=== PATIENT | male | born 1950 | race Hispanic/Latino ===

== ENCOUNTER 2017-06-01 11:06 | Inpatient (IN) | payer OTHER ==
[2017-06-01] VITALS (11 sets, daily range): BP systolic 103–143; BP diastolic 53–82
[~2017-06-01] VITALS: Ht 165.1 cm; Wt 79.9 kg
[~2017-06-01 11:06] MED LIST: FENO145T PO; IBUP-2071 PO; INSLAN SQ; LISI10TA7 PO; MECLIZINE PO; METF10004 PO
[2017-06-01] MEDS ORDERED: NITROGLYCERIN 0.4 MG SL TAB SL ONE (11:08)
[2017-06-01] MEDS ORDERED: ASPIRIN 81MG TAB.CHEW ONE (11:08)
[2017-06-01] MEDS ORDERED: NITROGLYCERIN 50 MG/D5% WATER 1 BOT ONE (11:18)
[2017-06-01] MEDS ORDERED: FENTANYL CITRATE PF 50 MCG/1 ML 2ML VIAL ONE (11:31)
[2017-06-01 11:40] LABS: BASOPHILS % (AUTO) 0.5 % (0.0-5.0); EOSINOPHILS % (AUTO) 0.9 % (0.0-8.0); HEMATOCRIT 43.8 % (42-54); LYMPHOCYTES % (AUTO) 37.3 % (21.0-51.0); MEAN CORPUSCULAR HEMOGLOBIN 29.7 pg (27.0-33.0); MEAN CORPUSCULAR HGB CONC 34.6 g/dL (32.0-36.0); MEAN CORPUSCULAR VOLUME 85.9 fL (79-99); MONOCYTES % (AUTO) 6.7 % (3.0-13.0); NEUTROPHILS % (AUTO) 54.6 % (40.0-77.0); PLATELET COUNT (AUTO) 191 K/uL (130-400); RED CELL DISTRIBUTION WIDTH 13.2 % (11.0-15.5); WHITE BLOOD COUNT (AUTO) 11.1 K/uL (4.8-10.8)
[2017-06-01] MEDS ORDERED: ATROPINE SULFATE 0.1 MG/ML 10 ML SYG IVP ONE (11:46)
[2017-06-01] MEDS ORDERED: ISOVUE-370 50ML VIAL IV ONE (11:47)
[2017-06-01] MEDS ORDERED: NITROGLYCERIN 5 MG/ML 10 ML VIAL IV ONE (11:47)
[2017-06-01] MEDS ORDERED: LIDOCAINE HCL-MPF 2% 5ML VIAL ONE (11:47)
[2017-06-01] MEDS ORDERED: IOPAMIDOL-370 100 ML VIAL IV ONE (11:47)
[2017-06-01] MEDS ORDERED: BIVALIRUDIN 250 MG/VIAL IV ONE (11:47)
[2017-06-01 11:52] LABS: INR 0.95 (0.85-1.15); PARTIAL THROMBOPLASTIN TIME 26.6 SEC (26.3-35.5)
[2017-06-01] MEDS ORDERED: MORPHINE SULFATE 4 MG/1ML SYG ONE (12:02)
[2017-06-01] MEDS ORDERED: ONDANSETRON HCL 4 MG/2 ML VIAL ONE (12:06)
[2017-06-01 12:10] LABS: ALBUMIN 3.5 g/dL (3.5-5.0); BILIRUBIN,TOTAL 0.5 mg/dL (0.2-1.0); CREATINE KINASE MB 1.7 ng/mL (0.5-3.6); CREATININE 0.9 mg/dL (0.5-1.5); TOTAL PROTEIN, SERUM 8.4 g/dL (6.0-8.3)
[2017-06-01] MEDS ORDERED: GLUCAGON 1MG KIT 1 MG ML IM PRN (12:15)
[2017-06-01] MEDS: DILTIAZEM HCL 60 MG TABLET PO SCH ×2 (12:15→23:32)
[2017-06-01] MEDS ORDERED: DEXTROSE 50%-WATER 50 ML DISP.SYRIN IV PRN (12:15)
[2017-06-01] MEDS: POTASSIUM CHLORIDE 20 MEQ ERTAB PO SCH ×2 (12:15→20:47)
[2017-06-01] MEDS ORDERED: HYDRALAZINE HCL 20 MG/ML VIAL ONE (12:47)
[2017-06-01] MEDS ORDERED: ACETAMINOPHEN 325 MG TAB ONE (14:17)
[2017-06-01 14:23] LABS: HEMATOCRIT 42.8 % (42-54); MEAN CORPUSCULAR HEMOGLOBIN 29.9 pg (27.0-33.0); MEAN CORPUSCULAR HGB CONC 34.7 g/dL (32.0-36.0); MEAN CORPUSCULAR VOLUME 86.1 fL (79-99); PLATELET COUNT (AUTO) 198 K/uL (130-400); RED BLOOD CELL COUNT(AUTO) 4.97 MIL/uL (4.50-6.20); RED CELL DISTRIBUTION WIDTH 13.7 % (11.0-15.5); WHITE BLOOD COUNT (AUTO) 17.8 K/uL (4.8-10.8)
[2017-06-01 14:57] LABS: LYMPHOCYTES % (MANUAL) 11 % (22-44); MAN.DIFF COMMENT-IMPRESSION MANUAL DIFFERENTIAL; MONOCYTES % (MANUAL) 2 % (2-9); REACTIVE LYMPHOCYTES 4 % (0-0); SEGMENTED NEUTROPHILS % 83 % (40-70)
[2017-06-01 14:58] LABS: CREATINE KINASE MB 3.6 ng/mL (0.5-3.6); CREATININE 0.8 mg/dL (0.5-1.5); PLATELET MORPHOLOGY COMMENT ADEQUATE; POTASSIUM 3.5 mmol/L (3.5-5.1); TROPONIN I 0.26 ng/mL (0.00-0.06)
[2017-06-01 20:27] LABS: HEMATOCRIT 44.3 % (42-54); MEAN CORPUSCULAR HEMOGLOBIN 29.9 pg (27.0-33.0); MEAN CORPUSCULAR HGB CONC 34.6 g/dL (32.0-36.0); MEAN CORPUSCULAR VOLUME 86.3 fL (79-99); PLATELET COUNT (AUTO) 194 K/uL (130-400); RED BLOOD CELL COUNT(AUTO) 5.13 MIL/uL (4.50-6.20); RED CELL DISTRIBUTION WIDTH 13.3 % (11.0-15.5); WHITE BLOOD COUNT (AUTO) 13.6 K/uL (4.8-10.8)
[2017-06-01] MEDS ORDERED: ACETAMINOPHEN 325 MG TAB PO PRN (21:00)
[2017-06-01 21:02] LABS: BAND NEUTROPHILS % (MANUAL) 1 % (0-2); LYMPHOCYTES % (MANUAL) 11 % (22-44); MONOCYTES % (MANUAL) 3 % (2-9); REACTIVE LYMPHOCYTES 1 % (0-0); SEGMENTED NEUTROPHILS % 84 % (40-70)
[2017-06-01 21:03] LABS: CREATININE 0.9 mg/dL (0.5-1.5); MAN.DIFF COMMENT-IMPRESSION MANUAL DIFFERENTIAL; POTASSIUM 3.9 mmol/L (3.5-5.1)
[2017-06-01 21:06] LABS: TROPONIN I 3.55 ng/mL (0.00-0.06)
[2017-06-01] MEDS ORDERED: KETOROLAC TROMETHAMINE 15MG/ML IV SCH (21:30)
[2017-06-02 01:33] LABS: B-TYPE NATRIURETIC PEPTIDE 51 pg/mL (0-100)
[2017-06-02 04:01] VITALS: BP 136/81
[2017-06-02 04:32] LABS: HEMATOCRIT 43.1 % (42-54); MEAN CORPUSCULAR HEMOGLOBIN 30.1 pg (27.0-33.0); MEAN CORPUSCULAR HGB CONC 35.1 g/dL (32.0-36.0); MEAN CORPUSCULAR VOLUME 85.8 fL (79-99); PLATELET COUNT (AUTO) 195 K/uL (130-400); RED BLOOD CELL COUNT(AUTO) 5.02 MIL/uL (4.50-6.20); RED CELL DISTRIBUTION WIDTH 13.4 % (11.0-15.5); WHITE BLOOD COUNT (AUTO) 12.5 K/uL (4.8-10.8)
[2017-06-02 05:16] LABS: CREATINE KINASE MB 81.9 ng/mL (0.5-3.6); CREATININE 0.8 mg/dL (0.5-1.5); POTASSIUM 3.6 mmol/L (3.5-5.1)
[2017-06-02 05:20] LABS: TROPONIN I 14.85 ng/mL (0.00-0.06)
[2017-06-02] MEDS: DILTIAZEM HCL 60 MG TABLET PO SCH ×2 (05:25→11:26)
[2017-06-02 07:12] VITALS: BP 147/85
[2017-06-02] MEDS: POTASSIUM CHLORIDE 20 MEQ ERTAB PO SCH (08:48)
[2017-06-02] MEDS ORDERED: MECL12.585 PO (08:54)
[2017-06-02] MEDS ORDERED: LISI10TA7 PO (08:54)
[2017-06-02] MEDS ORDERED: GABA-529 PO (08:54)
[2017-06-02] MEDS ORDERED: FENO145T37 PO (08:54)
[2017-06-02] MEDS ORDERED: INSLAN SQ (08:54)
[2017-06-02] MEDS ORDERED: PIOG45TA17 PO (08:54)
[2017-06-02] MEDS ORDERED: TRAM50TA4 PO (08:54)
[2017-06-02] MEDS ORDERED: ROSU20TA38 PO (08:54)
[2017-06-02] MEDS ORDERED: MIRALAX PO (08:54)
[2017-06-02] MEDS ORDERED: FAMO20TA8 PO (08:54)
[2017-06-02] MEDS ORDERED: SITA100T12 PO (08:54)
[2017-06-02] MEDS ORDERED: PANTOPRAZOLE SODIUM 40 MG TABLET.DR PO SCH (09:00)
[2017-06-02] MEDS ORDERED: ASPIRIN 325MG EC TAB 325 MG TABLET.DR PO SCH (09:00)
[2017-06-02 10:56] VITALS: BP 139/81
[2017-06-02] MEDS ORDERED: INSULIN HUMULIN R 100 UNIT/ML 3ML SQ SCH (11:30)
== END 2017-06-02 15:00 | disposition left against medical advice (07) | DRG 281 ==
LOC: EDH 11:06 → EDHIP 11:35 → 2AH 12:30
PROVIDERS: ADMIT Internal Medicine; ATTEND Internal Medicine
PROC: 4A023N7 Measurement of Cardiac Sampling and Pressure, Left Heart, Percutaneous Approach (ICD-10-PCS; principal; 2017-06-01)
PROC: B2151ZZ Fluoroscopy of Left Heart using Low Osmolar Contrast (ICD-10-PCS; 2017-06-01)
PROC: B2111ZZ Fluoroscopy of Multiple Coronary Arteries using Low Osmolar Contrast (ICD-10-PCS; 2017-06-01)
DX: I21.9 Acute myocardial infarction, unspecified (principal); I51.81 Takotsubo syndrome; E11.9 Type 2 diabetes mellitus without complications; I25.10 Atherosclerotic heart disease of native coronary artery without angina pectoris; I10 Essential (primary) hypertension; E78.5 Hyperlipidemia, unspecified; Z82.49 Family history of ischemic heart disease and other diseases of the circulatory system
CPT/HCPCS: 36415; 71045; 80048; 80053; 80061; 82550; 82553; 82948; 83874; 83880; 84484; 85025; 85027; 85610; 85730; 93005; 93458; C1760; C1894; J0360; J0461; J0583; J1644; J1885; J2270; J2405; J3010; J3490; Q9967

== ENCOUNTER 2019-08-15 09:00 | Inpatient (IN) | payer OTHER ==
[~2019-08-15] VITALS: Ht 166.4 cm; Wt 86.5 kg
[~2019-08-15 09:00] MED LIST changes: -FENO145T PO; -IBUP-2071 PO; -INSLAN SQ; -MECLIZINE PO; -METF10004 PO; +ROSU20TA31 PO; +SITA100T12 PO
[2019-08-15 16:14] LABS: APPEARANCE,URINE Clear (CLEAR); BILIRUBIN,URINE Negative (NEGATIVE); COLOR,URINE Dark Yellow (YELLOW); GLUCOSE, URINE (UA) Negative (NEGATIVE); KETONES,URINE Trace mg/dL (NEGATIVE); LEUKOCYTE ESTERASE ,URINE Negative (NEGATIVE); NITRATE,URINE Negative (NEGATIVE); OCCULT BLOOD,URINE Negative (NEGATIVE); PROTEIN,URINE POS 2+ mg/dL (NEGATIVE)
[2019-08-15 16:20] LABS: CREATININE 1.2 mg/dL (0.5-1.5); POTASSIUM 4.3 mmol/L (3.5-5.1)
[2019-08-15 16:23] LABS: INR 0.93 (0.85-1.15); PROTHROMBIN TIME 10.1 SEC (9.6-11.6)
[2019-08-15 16:48] LABS: BACTERIA,URINE Few /HPF (None Seen); MUCUS,URINE Few LPF (None Seen); SQUAMOUS EPITHELIAL CELL,UR Few /HPF (0-2)
[2019-08-19 11:37] VITALS: BP 120/71
[2019-08-19] MEDS ORDERED: gabapentin PO (12:51)
[2019-08-19] MEDS ORDERED: VITA-328 PO (12:51)
[2019-08-19] MEDS ORDERED: FENO160T16 PO (12:51)
[2019-08-19] MEDS ORDERED: DULO30CA52 PO (12:51)
[2019-08-19] MEDS ORDERED: DILT180C88 PO (12:51)
[2019-08-19] MEDS ORDERED: IBUP-2077 PO (12:51)
--- NOTE | 2019-08-19 15:07 | NUR ---
UA INFORMED DR. GOLDSTEIN OF ABNORMAL UA. NO ORDERS RECEIVED. PROCEED WITH PLANNED PROCEDURE
[2019-08-20] VITALS (22 sets, daily range): BP systolic 98–153; BP diastolic 51–94
--- NOTE | 2019-08-20 07:10 | NUR ---
POTENTIAL FOR INFECTION: RIGHT SHOULDER / RT UPPER ARM CLIPPED PER KAJAL LOWE, FOLLOWED BY WIPING WITH FLOR: 2% CHLORHEXIDINE GLUCONATE CLOTH PATIENTS PRE-OP SKIN PREP
[2019-08-20] MEDS ORDERED: SODIUM CHLORIDE 0.9% 1000ML 1,000 ML IV ONE (08:11)
[2019-08-20] MEDS: CEFAZOLIN SODIUM 1 GM VIAL IVP SCH ×3 (08:25→19:12)
[2019-08-20] MEDS ORDERED: INSULIN SQ (08:37)
[2019-08-20] MEDS ORDERED: LIDOCAINE PF 2% 5ML ABBOJECT ONE (09:13)
[2019-08-20] MEDS ORDERED: DEXAMETHASONE SOD PHOSPHATE 10MG/ML 1ML VIAL ONE (09:13)
[2019-08-20] MEDS ORDERED: SUCCINYLCHOLINE 200MG/10ML SYR ONE (09:13)
[2019-08-20] MEDS ORDERED: PROPOFOL 10 MG/ML 20ML VIAL IV ONE (09:13)
[2019-08-20] MEDS ORDERED: ONDANSETRON HCL 4 MG/2 ML VIAL ONE (09:13)
[2019-08-20] MEDS ORDERED: GLYCOPYRROLATE 1 MG/5 ML SYRINGE ONE ×2 (09:13→13:53)
[2019-08-20] MEDS ORDERED: FENTANYL CITRATE PF 50 MCG/1 ML 2ML VIAL ONE (09:14)
[2019-08-20] MEDS ORDERED: NEOSTIGMINE 5MG/5ML SYR IV ONE ×2 (09:14→13:54)
[2019-08-20] MEDS ORDERED: MIDAZOLAM HCL 1 MG/ML 2ML VIAL ONE (09:14)
[2019-08-20] MEDS ORDERED: ROCURONIUM 10MG/1ML SYR 10 MG/ML ML ONE ×2 (09:14→10:47)
[2019-08-20] MEDS ORDERED: ROPIVACAINE 0.5% 5MG/ML 30ML IJ ONE (09:20)
[2019-08-20] MEDS ORDERED: TRANEXAMIC ACID 1000MG/10ML ONE (09:28)
[2019-08-20] MEDS ORDERED: CEFAZOLIN SODIUM 1 GM VIAL ONE (09:28)
[2019-08-20] MEDS ORDERED: EPHEDRINE SULFATE 50 MG/ML AMPULE ONE ×2 (10:02→11:20)
[2019-08-20] MEDS: TRANEXAMIC ACID 1000MG/10ML ONE ×2 (10:45→14:22)
[2019-08-20] MEDS: SODIUM CHLORIDE 0.9% 1000ML 1,000 ML IV SCH (13:59)
[2019-08-20] MEDS ORDERED: POTASSIUM CHLORIDE 20 MEQ ERTAB PO PRN (14:00)
[2019-08-20] MEDS ORDERED: LIDOCAINE HCL-MPF 1% 2ML VIAL IV PRN (14:00)
[2019-08-20] MEDS ORDERED: ONDANSETRON HCL 4 MG/2 ML VIAL IVP PRN (14:00)
[2019-08-20] MEDS ORDERED: TRAMADOL HCL 50 MG TABLET PO PRN (14:00)
[2019-08-20] MEDS ORDERED: FE FUMARATE/FA/MV, MIN COMB#15 1 TAB PO PRN (14:00)
[2019-08-20] MEDS ORDERED: POTASSIUM CHLORIDE 10% ELIXIR 20 MEQ/15 ML UDCUP PO PRN (14:00)
[2019-08-20] MEDS ORDERED: POTASSIUM CHLORIDE 20MEQ/100ML 100 ML IV PRN (14:00)
[2019-08-20] MEDS ORDERED: TEMAZEPAM 15 MG CAPSULE PO PRN (14:00)
[2019-08-20] MEDS ORDERED: KETOROLAC TROMETHAMINE 15MG/ML IV PRN (14:00)
[2019-08-20] MEDS ORDERED: DiphenhydrAMINE HCL 50 MG/ML VIAL IVP PRN (14:00)
--- NOTE | 2019-08-20 15:48 | NUR ---
Patient still sleepy; informed Laquita BENNETT and Mary BENNETT. Addendum: 08/20/19 at 1549 by SARIKA GALLAGHER RT Amended: Links added.
[2019-08-20] MEDS: INSULIN HUMULIN R 100 UNIT/ML 3ML SQ SCH ×2 (17:10→23:27)
[2019-08-20] MEDS: ACETAMINOPHEN EXTRA STRENGTH 500 MG TABLET PO SCH ×2 (17:11→22:00)
[2019-08-20] MEDS: OXYCODONE HCL 5 MG TAB PO PRN (19:26)
[2019-08-20] MEDS ORDERED: HYDROMORPHONE 1 MG/1 ML AMP ONE (21:52)
[2019-08-20] MEDS: GABAPENTIN 300 MG CAPSULE PO SCH (22:08)
[2019-08-20] MEDS: CELECOXIB 200 MG CAP PO SCH (22:08)
[2019-08-20] MEDS: FAMOTIDINE 20MG TAB 20 MG TAB PO SCH (22:08)
[2019-08-20] MEDS: ASPIRIN 81MG TAB.CHEW PO SCH (22:09)
[2019-08-20] MEDS: ATORVASTATIN CALCIUM 40 MG TABLET PO SCH (22:09)
[2019-08-21] MEDS: HYDROMORPHONE 1 MG/1 ML AMP IVP PRN ×6 (00:05→23:15)
[2019-08-21] MEDS: SODIUM CHLORIDE 0.9% 1000ML 1,000 ML IV SCH ×2 (00:06→09:59)
[2019-08-21 00:24] VITALS: BP 156/84
[2019-08-21] MEDS: OXYCODONE HCL 5 MG TAB PO PRN ×4 (01:44→22:28)
[2019-08-21] MEDS: CEFAZOLIN SODIUM 1 GM VIAL IVP SCH (02:29)
[2019-08-21] MEDS ORDERED: CEFAZOLIN SODIUM 1 GM VIAL ONE (02:30)
[2019-08-21 04:32] VITALS: BP 155/86
[2019-08-21 04:58] LABS: HEMATOCRIT 32.3 % (42-54); MEAN CORPUSCULAR HEMOGLOBIN 29.7 pg (27.0-33.0); MEAN CORPUSCULAR HGB CONC 34.1 g/dL (32.0-36.0); MEAN CORPUSCULAR VOLUME 87.3 fL (79-99); RED BLOOD CELL COUNT(AUTO) 3.7 MIL/uL (4.50-6.20); WHITE BLOOD COUNT (AUTO) 12.5 K/uL (4.8-10.8)
[2019-08-21] MEDS: ACETAMINOPHEN EXTRA STRENGTH 500 MG TABLET PO SCH ×3 (05:08→20:55)
[2019-08-21 05:19] LABS: POTASSIUM 3.7 mmol/L (3.5-5.1)
[2019-08-21] MEDS: INSULIN HUMULIN R 100 UNIT/ML 3ML SQ SCH ×4 (06:48→20:50)
[2019-08-21 08:00] VITALS: BP 154/93
[2019-08-21] MEDS: DILTIAZEM HCL 180 MG CAP.SR.24H PO SCH (08:45)
[2019-08-21] MEDS: CELECOXIB 200 MG CAP PO SCH ×2 (08:46→19:53)
[2019-08-21] MEDS: FAMOTIDINE 20MG TAB 20 MG TAB PO SCH ×2 (08:46→19:52)
[2019-08-21] MEDS: CALCIUM CARBONATE 500 MG TABLET PO PRN ×2 (08:46→19:53)
[2019-08-21] MEDS: ASPIRIN 81MG TAB.CHEW PO SCH ×2 (08:46→19:53)
[2019-08-21] MEDS: VITAMIN B COMPLEX 1 CAPSULE PO SCH (08:46)
[2019-08-21] MEDS: LISINOPRIL 10 MG TABLET PO SCH (08:46)
[2019-08-21] MEDS: DULOXETINE HCL 30 MG CAP PO SCH (08:46)
[2019-08-21] MEDS: LINAGLIPTIN 5 MG TABLET PO SCH (08:47)
[2019-08-21] MEDS: POLYETHYLENE GLYCOL 3350 17 GM POWD.PACK PO SCH (08:47)
[2019-08-21] MEDS: TAMSULOSIN HCL 0.4 MG CAP.ER.24H PO SCH (08:50)
[2019-08-21] MEDS: GABAPENTIN 300 MG CAPSULE PO SCH ×2 (08:50→19:52)
[2019-08-21] MEDS: **HM**(Fenofibrate 160 MG PO SCH (08:51)
--- NOTE | 2019-08-21 09:36 | NUR ---
DC PLAN VISITED WITH PATIENT. PATIENT LIVES WITH SPOUSE AND 10 OTHER PEOPLE IN HOME. PATIENT HAS NO DME EXCEPT A [facility]. PROVIDER 4 HOURS A DAY. PATIENT FEELS SAFE TO RETURN HOME. JUANY SIGNED FOR [facility] [employer] PACKET MADE INFO FAXED. CHARLETTE WILL CONTINUE TO FOLLOW. Addendum: 08/21/19 at 0938 by EMMA BIANCHI RN CM Amended: Links added.
[2019-08-21 11:41] VITALS: BP 165/95
[2019-08-21 16:00] VITALS: BP 116/57
--- NOTE | 2019-08-21 18:00 | NUR ---
called to dr ogden on update for patient , per Md patient will be staying 2 days , no plans for dc today due to Hemovac drain.
[2019-08-21] MEDS: ATORVASTATIN CALCIUM 40 MG TABLET PO SCH (19:53)
[2019-08-21 20:24] VITALS: BP 132/71
[2019-08-22 00:28] VITALS: BP 140/69
[2019-08-22] MEDS: HYDROMORPHONE 1 MG/1 ML AMP IVP PRN ×3 (01:04→04:45)
[2019-08-22 04:28] VITALS: BP 150/78
[2019-08-22] MEDS: ACETAMINOPHEN EXTRA STRENGTH 500 MG TABLET PO SCH (04:45)
[2019-08-22] MEDS: INSULIN HUMULIN R 100 UNIT/ML 3ML SQ SCH ×2 (06:16→12:08)
[2019-08-22 08:00] VITALS: BP 106/54
[2019-08-22] MEDS ORDERED: MAGNESIUM CITRATE 296 ML SOLUTION PO SCH (08:30)
[2019-08-22] MEDS ORDERED: BISACODYL 5 MG TABLET.DR PO ONE (08:53)
[2019-08-22] MEDS: ASPIRIN 81MG TAB.CHEW PO SCH (08:57)
[2019-08-22] MEDS: LINAGLIPTIN 5 MG TABLET PO SCH (08:57)
[2019-08-22] MEDS: FAMOTIDINE 20MG TAB 20 MG TAB PO SCH (08:57)
[2019-08-22] MEDS: GABAPENTIN 300 MG CAPSULE PO SCH (08:58)
[2019-08-22] MEDS: CELECOXIB 200 MG CAP PO SCH (08:58)
[2019-08-22] MEDS: LISINOPRIL 10 MG TABLET PO SCH (08:58)
[2019-08-22] MEDS: POLYETHYLENE GLYCOL 3350 17 GM POWD.PACK PO SCH (08:58)
[2019-08-22] MEDS: DILTIAZEM HCL 180 MG CAP.SR.24H PO SCH (08:58)
[2019-08-22] MEDS: DULOXETINE HCL 30 MG CAP PO SCH (08:58)
[2019-08-22] MEDS: OXYCODONE HCL 5 MG TAB PO PRN (08:59)
[2019-08-22] MEDS: TAMSULOSIN HCL 0.4 MG CAP.ER.24H PO SCH (08:59)
[2019-08-22] MEDS: **HM**(Fenofibrate 160 MG PO SCH (09:00)
[2019-08-22] MEDS ORDERED: BISACODYL 5 MG TABLET.DR PO SCH (09:00)
[2019-08-22] MEDS: VITAMIN B COMPLEX 1 CAPSULE PO SCH (09:00)
--- NOTE | 2019-08-22 09:10 | NUR ---
DR GOLDSTEIN ORDERED FOR PT TO BE DISCHARGED AFTER PHYSICAL THERAPY IN THE AFTERNOON.
[2019-08-22] MEDS ORDERED: HYDR-4457 PO (09:11)
--- NOTE | 2019-08-22 10:39 | NUR ---
REPORT CALLED [facility]. REPORT GIVEN TO SHELLEY MACKEY RN REGARDING NEW F/U APPOINTMENTS, NEW RX, DRESSING CHANGE (08/25/19), PT EXERCISES REQUESTED BY DR GOLDSTEIN, AND S/S TO REPORT. SHELLEY VERBALIZED UNDERSTANDING. NO CONCERNS VOICED.
--- NOTE | 2019-08-22 10:45 | NUR ---
DISCHARGE. PATIENT GIVEN DISCHARGE INSTRUCTIONS AND EDUCATION ON FOLLOW UP APPOINTMENTS, NEW RX ([facility]), INCISION CARE AND DRESSING D/C ON 08/25/19., AND PT RECOMMENDATIONS. IV DISCONTINUED, CATHETER INTACT, NO DISTRESS NOTED UPON DISCHARGE. ALL BELONGINGS TAKEN WITH. WAITING FOR 2ND THERAPY SESSION AND TO COME AND PICK HIM UP.
--- NOTE | 2019-08-22 10:48 | NUR ---
TEXTED DR GOLDSTEIN REGARDING ASPIRIN PRESCRIPTION. UNABLE TO FINALIZE D/C PAPERWORK WITHOUT ASPIRIN RX.
--- NOTE | 2019-08-22 11:06 | NUR ---
DR GOLDSTEIN TEXTED BACK REGARDING ASPIRIN. STATED PT DOESN'T NEED ANTICOAGULANT RX. NO NEW ORDERS RECEIVED.
[2019-08-22 11:13] VITALS: BP 147/74
--- NOTE | 2019-08-22 14:00 | NUR ---
PATIENT RE- ASSESSED FOR C/O DIZZINESS PATIENT DENIES ANY DIZZINESS AT THIS MOMENT, STATED THAT HE FORGOT TO BRING HIS VERTIGO MEDICATIONS WITH HIM. NO VERTIGO MEDICATIONS LISTED ON THE MEDICATION RECONCILIATION. I TOLD PATIENT THAT HE COULD ASK HIS TO BRING THE MEDICATION OR SEND HIM A PICTURE. PATIENT STATED HIS DOESN'T WANT TO GO TO [place] TO LOOK FOR IT AND THAT HE ALREADY FEELS BETTER. VS STABLE. NO MORE CONCERNS VOICED.
[2019-08-22 14:09] VITALS: BP 131/84
--- NOTE | 2019-08-22 16:00 | NUR ---
PATIENT LEFT VIA WHEELCHAIR. AT SIDE. NO C/O DIZZINESS AT THIS TIME. NO DISTRESS NOTED UPON DISCHARGE.
[2019-08-23] MEDS ORDERED: BISACODYL 10 MG SUPP.RECT RC PRN (14:00)
== END 2019-08-22 16:17 | disposition home health service (06) | DRG 483 ==
LOC: EDSTATUS 09:00 → DAHIP 08-20 06:01 → 3DH 08-20 14:39
PROVIDERS: ADMIT Orthopaedic Surgery; ATTEND Orthopaedic Surgery
PROC: 0RRJ00Z Replacement of Right Shoulder Joint with Reverse Ball and Socket Synthetic Substitute, Open Approach (ICD-10-PCS; principal; 2019-08-20 10:15)
PROC: 3E0T3BZ Introduction of Anesthetic Agent into Peripheral Nerves and Plexi, Percutaneous Approach (ICD-10-PCS; 2019-08-20 10:15)
DX: M75.101 Unspecified rotator cuff tear or rupture of right shoulder, not specified as traumatic (principal); M12.811 Other specific arthropathies, not elsewhere classified, right shoulder; E78.5 Hyperlipidemia, unspecified; G89.29 Other chronic pain; I10 Essential (primary) hypertension; I25.10 Atherosclerotic heart disease of native coronary artery without angina pectoris; Z20.828 Contact with and (suspected) exposure to other viral communicable diseases; E11.9 Type 2 diabetes mellitus without complications; E66.9 Obesity, unspecified; I25.2 Old myocardial infarction; Z68.31 Body mass index [BMI] 31.0-31.9, adult; Z98.61 Coronary angioplasty status
CPT/HCPCS: 36415; 73030; 80048; 81001; 82948; 85027; 85610; 87641; 88304; 88311; 97039; A4565; G0378; J0330; J0690; J1100; J1170; J1815; J1885; J2001; J2250; J2405; J2704; J2710; J2795; J3010; J3490; J7030; U0003

== ENCOUNTER 2019-09-05 13:48 | Inpatient (IN) | payer OTHER ==
[~2019-09-05] VITALS: Ht 165.1 cm; Wt 76.2 kg
[~2019-09-05 13:48] MED LIST changes: +DILT180C88 PO; +DULO30CA52 PO; +FENO160T16 PO; +HYDR-4457 PO; +IBUP-2077 PO; +INSULIN SQ; +VITA-328 PO; +gabapentin PO
[2019-09-05] MEDS ORDERED: DOPAMINE HCL 400 MG/D5%-WATER 250 ML IV ONE (14:14)
[2019-09-05] MEDS ORDERED: SODIUM BICARB 8.4% 50ML SYRINGE IVP ONE (14:14)
[2019-09-05] MEDS ORDERED: EPINEPHRINE 0.1 MG/ML 10 ML SYG IVP ONE (14:14)
[2019-09-05] MEDS ORDERED: CEFTRIAXONE SODIUM 2 GM VIAL ONE (14:27)
[2019-09-05] MEDS ORDERED: SODIUM CHLORIDE 0.9% 50 ML IV ONE (14:29)
[2019-09-05 14:36] LABS: BASOPHILS % (AUTO) 0.3 % (0.0-5.0); EOSINOPHILS % (AUTO) 1.6 % (0.0-8.0); HEMATOCRIT 36.2 % (42-54); LYMPHOCYTES % (AUTO) 30.9 % (21.0-51.0); MEAN CORPUSCULAR HEMOGLOBIN 28.6 pg (27.0-33.0); MEAN CORPUSCULAR HGB CONC 33.7 g/dL (32.0-36.0); MEAN CORPUSCULAR VOLUME 84.8 fL (79-99); MONOCYTES % (AUTO) 10.3 % (3.0-13.0); NEUTROPHILS % (AUTO) 56.2 % (40.0-77.0); PLATELET COUNT (AUTO) 258 K/uL (130-400); RED BLOOD CELL COUNT(AUTO) 4.27 MIL/uL (4.50-6.20); WHITE BLOOD COUNT (AUTO) 6.1 K/uL (4.8-10.8)
[2019-09-05 14:50] LABS: INR 0.99 (0.85-1.15); PARTIAL THROMBOPLASTIN TIME 34.8 SEC (26.3-35.5); PROTHROMBIN TIME 10.7 SEC (9.6-11.6)
[2019-09-05 14:57] LABS: CARBON DIOXIDE 24 mmol/L (21-32); CHLORIDE 94 mmol/L (101-111); CREATININE 1.3 mg/dL (0.5-1.5); GLOMERULAR FILTR. RATE CALC 58 mL/min (>60); GLUCOSE,RANDOM 291 mg/dL (70-105); POTASSIUM 4.8 mmol/L (3.5-5.1); SODIUM SERUM 127 mmol/L (136-145); UREA NITROGEN, BLOOD 22 mg/dL (7-18)
[2019-09-05 15:13] LABS: ALANINE AMINOTRANSFERASE 23 U/L (12-78); ASPARTATE AMINOTRANSFERASE 37 U/L (10-37); BILIRUBIN,TOTAL 0.4 mg/dL (0.2-1.0); CREATINE KINASE, TOTAL 290 U/L (21-232); MYOGLOBIN 182 ng/mL (10-92); TOTAL PROTEIN, SERUM 8.1 g/dL (6.0-8.3); TROPONIN I < 0.04 ng/mL (0.00-0.06)
[2019-09-05 15:26] LABS: APPEARANCE,URINE Cloudy (CLEAR); BILIRUBIN,URINE Small (NEGATIVE); COLOR,URINE Dark Yellow (YELLOW); GLUCOSE, URINE (UA) 500 mg/dL (NEGATIVE); KETONES,URINE Trace mg/dL (NEGATIVE); LEUKOCYTE ESTERASE ,URINE Negative (NEGATIVE); NITRATE,URINE Negative (NEGATIVE); OCCULT BLOOD,URINE Trace (NEGATIVE); PROTEIN,URINE 300 mg/dL (NEGATIVE)
[2019-09-05 16:02] LABS: WBC,URINE 0-1 /HPF (0-1)
[2019-09-05 16:03] LABS: BACTERIA,URINE Few /HPF (None Seen)
[2019-09-05 16:04] LABS: AMORPHOUS SEDIMENT,UR Few /LPF (None Seen); SQUAMOUS EPITHELIAL CELL,UR Few /HPF (0-2)
[2019-09-05 16:05] LABS: MUCUS,URINE Few LPF (None Seen)
[2019-09-05 17:44] LABS: ABG BASE EXCESS -0.2 mmol/L (-2.0-3.0); ABG HCO3 22.8 mmol/L (21.0-28.0); ABG OXYGEN SATURATION 95.2 % (95.0-99.0); ABG PCO2 33 mmHg (35-48)
[2019-09-05] MEDS ORDERED: IOHEXOL 350 MG/ML 100ML INFUS..BTL IV ONE (17:53)
[2019-09-05 21:04] LABS: CRP QUANTITATIVE 14.4 mg/L (0.00-9.0)
[2019-09-06] MEDS ORDERED: ACETAMINOPHEN 325 MG TAB ONE ×2 (00:05→16:24)
[2019-09-06 06:16] LABS: BASOPHILS % (AUTO) 0.3 % (0.0-5.0); EOSINOPHILS % (AUTO) 2.5 % (0.0-8.0); HEMATOCRIT 39.2 % (42-54); LYMPHOCYTES % (AUTO) 37.8 % (21.0-51.0); MEAN CORPUSCULAR HEMOGLOBIN 29.1 pg (27.0-33.0); MEAN CORPUSCULAR HGB CONC 33.7 g/dL (32.0-36.0); MEAN CORPUSCULAR VOLUME 86.3 fL (79-99); MONOCYTES % (AUTO) 8.5 % (3.0-13.0); NEUTROPHILS % (AUTO) 50.4 % (40.0-77.0); PLATELET COUNT (AUTO) 235 K/uL (130-400); RED BLOOD CELL COUNT(AUTO) 4.54 MIL/uL (4.50-6.20); WHITE BLOOD COUNT (AUTO) 5.9 K/uL (4.8-10.8)
[2019-09-06 06:34] LABS: CREATININE 1.1 mg/dL (0.5-1.5); POTASSIUM 3.7 mmol/L (3.5-5.1)
[2019-09-06] MEDS ORDERED: FAMOTIDINE/PF 20 MG/2 ML VIAL IV ONE (08:45)
[2019-09-06] MEDS ORDERED: ENOXAPARIN SODIUM 40 MG/0.4 ML SYRINGE SQ ONE (08:45)
[2019-09-06] MEDS ORDERED: FAMOTIDINE 20MG TAB 20 MG TAB PO SCH (09:00)
[2019-09-06] MEDS ORDERED: ZOLPIDEM TARTRATE 5 MG TAB PO PRN (11:45)
[2019-09-06] MEDS ORDERED: ONDANSETRON HCL 4 MG/2 ML VIAL IVP PRN (11:45)
[2019-09-06] MEDS ORDERED: SODIUM CHLORIDE 0.9% 1000ML 1,000 ML IV SCH (11:45)
[2019-09-06] MEDS ORDERED: IPRATROPIUM/ALBUTEROL SULFATE 3 ML SOLUTION IH PRN (11:45)
[2019-09-06] MEDS ORDERED: LACTULOSE 20 GM/30 ML UDCUP PO PRN (11:45)
[2019-09-06] MEDS ORDERED: HYDRALAZINE HCL 20 MG/ML VIAL IV PRN (11:45)
[2019-09-06] MEDS ORDERED: HYDROMORPHONE HCL 0.5 MG/0.5 ML ML IVP PRN (11:45)
[2019-09-06] MEDS ORDERED: LABETALOL 20 MG/4 ML DISP.SYRIN IV PRN (11:45)
[2019-09-06] MEDS ORDERED: HYDRALAZINE HCL 20 MG/ML VIAL ONE (13:09)
[2019-09-06] MEDS: DEXAMETHASONE SOD PHOSPHATE 4 MG/ML 1ML VIAL IVP SCH (14:30)
[2019-09-06] MEDS ORDERED: ALBUTEROL INHALER 90MCG/INH IH PRN (16:15)
--- NOTE | 2019-09-06 18:17 | NUR ---
INITIAL SW spoke to patient' spouse, Hyun Vee, [phone]. Patient has [facility] once a week and therapist that go to work with patient. PH[facility] is with [facility] 20 hours a week. Son-in-law is provider. DME: [facility], glucometer (uses insulin). Patient needs help with ADL's but drives. PCP is Dr. Shelley Garcia. DME is [facility] in [place]. DCP is home. As per spouse, patient's mother was positive for COVID 19. Spouse is pending testing for COVID at this time. Addendum: 09/06/19 at 1820 by SHELLEY JENSEN SS Amended: Links added.
[2019-09-06] MEDS ORDERED: DEXAMETHASONE SOD PHOSPHATE 4 MG/ML 1ML VIAL ONE (21:20)
[2019-09-06] MEDS ORDERED: PANTOPRAZOLE SODIUM 40 MG TABLET.DR ONE (21:20)
[2019-09-07 04:49] LABS: HEMATOCRIT 36.3 % (42-54); LYMPHOCYTES % (AUTO) 18.8 % (21.0-51.0); MEAN CORPUSCULAR HEMOGLOBIN 28.8 pg (27.0-33.0); MEAN CORPUSCULAR HGB CONC 33.6 g/dL (32.0-36.0); MEAN CORPUSCULAR VOLUME 85.8 fL (79-99); MONOCYTES % (AUTO) 2.9 % (3.0-13.0); NEUTROPHILS % (AUTO) 77.9 % (40.0-77.0); PLATELET COUNT (AUTO) 248 K/uL (130-400); RED BLOOD CELL COUNT(AUTO) 4.23 MIL/uL (4.50-6.20); WHITE BLOOD COUNT (AUTO) 4.5 K/uL (4.8-10.8)
[2019-09-07 04:59] LABS: ALBUMIN 2.7 g/dL (3.5-5.0); BILIRUBIN,DIRECT 0.2 mg/dL (0.0-0.3); BILIRUBIN,TOTAL 0.5 mg/dL (0.2-1.0); CREATININE 1.3 mg/dL (0.5-1.5); MAGNESIUM 2.2 mg/dL (1.80-2.40); POTASSIUM 4.5 mmol/L (3.5-5.1); TOTAL PROTEIN, SERUM 7.8 g/dL (6.0-8.3)
[2019-09-07 05:13] LABS: CRP QUANTITATIVE 188.4 mg/L (0.00-9.0)
[2019-09-07 05:39] LABS: B-TYPE NATRIURETIC PEPTIDE 23 pg/mL (0-100)
[2019-09-07] MEDS ORDERED: ATORVASTATIN CALCIUM 40 MG TABLET ONE (08:29)
[2019-09-07] MEDS ORDERED: ENOXAPARIN SODIUM 40 MG/0.4 ML SYRINGE SQ ONE (08:29)
[2019-09-07] MEDS ORDERED: DEXAMETHASONE SOD PHOSPHATE 4 MG/ML 1ML VIAL ONE (08:29)
[2019-09-07] MEDS ORDERED: GABAPENTIN 300 MG CAPSULE ONE ×2 (08:29→20:56)
[2019-09-07] MEDS: ENOXAPARIN SODIUM 40 MG/0.4 ML SYRINGE SQ SCH ×2 (08:41→08:44)
[2019-09-07] MEDS: GABAPENTIN 300 MG CAPSULE PO SCH (08:42)
[2019-09-07] MEDS: ATORVASTATIN CALCIUM 40 MG TABLET PO SCH (08:42)
[2019-09-07] MEDS: **HM** FENOFIBRATE 160MG PO SCH (08:43)
[2019-09-07] MEDS ORDERED: LISINOPRIL 10 MG TABLET PO SCH (09:00)
[2019-09-07] MEDS: DILTIAZEM HCL 180 MG CAP.SR.24H PO SCH (10:45)
[2019-09-07] MEDS: VITAMIN B COMPLEX 1 CAPSULE PO SCH (10:45)
[2019-09-07] MEDS: DULOXETINE HCL 30 MG CAP PO SCH (10:45)
[2019-09-07] MEDS ORDERED: PANTOPRAZOLE SODIUM 40 MG TABLET.DR ONE (11:03)
[2019-09-07] MEDS: PANTOPRAZOLE SODIUM 40 MG TABLET.DR PO SCH (11:04)
[2019-09-07 12:00] VITALS: BP 115/66
[2019-09-07] MEDS: DEXAMETHASONE SOD PHOSPHATE 4 MG/ML 1ML VIAL IVP SCH (15:06)
[2019-09-07 17:11] VITALS: BP 99/65
[2019-09-08] MEDS ORDERED: ACETAMINOPHEN 325 MG TAB PO PRN (07:15)
[2019-09-08 08:03] LABS: BASOPHILS % (AUTO) 0.2 % (0.0-5.0); HEMATOCRIT 34.2 % (42-54); LYMPHOCYTES % (AUTO) 13.3 % (21.0-51.0); MEAN CORPUSCULAR HEMOGLOBIN 28.8 pg (27.0-33.0); MEAN CORPUSCULAR HGB CONC 33.6 g/dL (32.0-36.0); MEAN CORPUSCULAR VOLUME 85.7 fL (79-99); MONOCYTES % (AUTO) 5.2 % (3.0-13.0); NEUTROPHILS % (AUTO) 80.7 % (40.0-77.0); PLATELET COUNT (AUTO) 257 K/uL (130-400); RED BLOOD CELL COUNT(AUTO) 3.99 MIL/uL (4.50-6.20); RED CELL DISTRIBUTION WIDTH 13.2 % (11.0-15.5); WHITE BLOOD COUNT (AUTO) 6.4 K/uL (4.8-10.8)
[2019-09-08 08:18] LABS: CREATININE 1.3 mg/dL (0.5-1.5); POTASSIUM 4.3 mmol/L (3.5-5.1)
[2019-09-08] MEDS: **HM** FENOFIBRATE 160MG PO SCH (09:00)
[2019-09-08] MEDS: FAMOTIDINE 20MG TAB 20 MG TAB PO SCH (09:00)
[2019-09-08] MEDS: GABAPENTIN 300 MG CAPSULE PO SCH ×2 (09:00→21:00)
[2019-09-08] MEDS: DILTIAZEM HCL 180 MG CAP.SR.24H PO SCH (09:00)
[2019-09-08] MEDS: DULOXETINE HCL 30 MG CAP PO SCH (09:00)
[2019-09-08] MEDS: VITAMIN B COMPLEX 1 CAPSULE PO SCH (09:00)
[2019-09-08] MEDS ORDERED: LISINOPRIL 5 MG TABLET PO SCH (09:00)
[2019-09-08] MEDS ORDERED: ENOXAPARIN SODIUM 40 MG/0.4 ML SYRINGE SQ ONE (11:21)
[2019-09-08] MEDS ORDERED: FAMOTIDINE/PF 20 MG/2 ML VIAL IV ONE ×2 (11:21→23:02)
--- NOTE | 2019-09-08 12:20 | NUR ---
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 ADVISED DEANNA BENNETT OF ABOVE CM WILL FOLLOW, HAVE PREPARED PKT FOR [facility] PATIENT Addendum: 09/08/19 at 1230 by WOOD MARIE RN CM Amended: Links added.
[2019-09-08] MEDS: DEXAMETHASONE SOD PHOSPHATE 4 MG/ML 1ML VIAL IVP SCH (14:30)
[2019-09-08] MEDS ORDERED: SODIUM BICARB 8.4% 50ML SYRINGE IVP SCH (16:00)
[2019-09-08] MEDS ORDERED: LEVOFLOXACIN 500 MG TABLET ONE (19:46)
[2019-09-08] MEDS ORDERED: DEXAMETHASONE SOD PHOSPHATE 10MG/ML 1ML VIAL ONE (23:02)
[2019-09-09] VITALS (13 sets, daily range): BP systolic 94–140; BP diastolic 54–81
[2019-09-09 05:13] LABS: HEMATOCRIT 34.7 % (42-54); MEAN CORPUSCULAR HEMOGLOBIN 29.1 pg (27.0-33.0); MEAN CORPUSCULAR VOLUME 85.5 fL (79-99); RED BLOOD CELL COUNT(AUTO) 4.06 MIL/uL (4.50-6.20); RED CELL DISTRIBUTION WIDTH 12.7 % (11.0-15.5); WHITE BLOOD COUNT (AUTO) 6.4 K/uL (4.8-10.8)
[2019-09-09 05:23] LABS: CREATININE 1.1 mg/dL (0.5-1.5); POTASSIUM 4.6 mmol/L (3.5-5.1)
[2019-09-09] MEDS: DILTIAZEM HCL 180 MG CAP.SR.24H PO SCH (09:00)
[2019-09-09] MEDS: PANTOPRAZOLE SODIUM 40 MG TABLET.DR PO SCH ×2 (09:00→09:55)
[2019-09-09] MEDS: DULOXETINE HCL 30 MG CAP PO SCH (09:00)
[2019-09-09] MEDS: ATORVASTATIN CALCIUM 40 MG TABLET PO SCH ×2 (09:00→09:55)
[2019-09-09] MEDS: **HM** FENOFIBRATE 160MG PO SCH (09:00)
[2019-09-09] MEDS: FAMOTIDINE 20MG TAB 20 MG TAB PO SCH (09:00)
[2019-09-09] MEDS: VITAMIN B COMPLEX 1 CAPSULE PO SCH (09:00)
[2019-09-09] MEDS: LEVOFLOXACIN 500 MG TABLET PO SCH ×2 (09:00→09:54)
[2019-09-09] MEDS: GABAPENTIN 300 MG CAPSULE PO SCH ×3 (09:00→21:38)
[2019-09-09] MEDS ORDERED: GABAPENTIN 300 MG CAPSULE ONE (09:43)
[2019-09-09] MEDS ORDERED: DILTIAZEM HCL 60 MG TABLET ONE (09:43)
[2019-09-09] MEDS ORDERED: LEVOFLOXACIN 500 MG TABLET ONE (09:45)
[2019-09-09] MEDS ORDERED: ATORVASTATIN CALCIUM 40 MG TABLET ONE (09:45)
[2019-09-09] MEDS ORDERED: PANTOPRAZOLE SODIUM 40 MG TABLET.DR ONE (09:46)
[2019-09-09] MEDS ORDERED: ENOXAPARIN SODIUM 60 MG/0.6 ML SQ ONE (09:52)
[2019-09-09] MEDS ORDERED: LISINOPRIL 5 MG TABLET ONE (10:10)
[2019-09-09] MEDS: DEXAMETHASONE SOD PHOSPHATE 4 MG/ML 1ML VIAL IVP SCH (14:30)
[2019-09-09] MEDS ORDERED: DEXAMETHASONE SOD PHOSPHATE 10MG/ML 1ML VIAL ONE (15:01)
--- NOTE | 2019-09-09 15:01 | NUR ---
CALL TO SPOUSE RE OXYGEN DELIVERY, JUANY FOR [facility], ALSO THAT SHE NEEDS TO CONTACT HOSPITAL WHEN OXYGEN ARRIVES TO HOME. VERBALIZED UNDERSTANDING
--- NOTE | 2019-09-09 15:39 | NUR ---
ALL INFO SENT TO YEMENI HOLYROOD PATIENT AT 1400, CALL TO LOCAL OFFICE AT 1500, S THEY STATED THEY WOULD CALL FAMILY RE DELIVERY TO HOUSE
--- NOTE | 2019-09-09 16:13 | NUR ---
NO DC TODAY - INQUIRED- ADVISED BY FEED ELEVATOR WORKER THAT PATIENT IWLL NOT BE DCD.-- DE STURATING CALL TO RN TO DISCUSS, BURKE MARTINP TO DISCUSS, CANCELLED O2 ORDER- CALLED [facility].. WILL NEED NEW RESP EVAL WHEN READY TO GO
[2019-09-09] MEDS: FUROSEMIDE 10 MG/ML 2ML VIAL IV SCH (16:15)
[2019-09-09] MEDS ORDERED: LIDOCAINE HCL-MPF 1% 2ML VIAL IV PRN (16:15)
[2019-09-09] MEDS ORDERED: POTASSIUM CHLORIDE 20MEQ/100ML 100 ML IV PRN (16:15)
[2019-09-09] MEDS ORDERED: MAGNESIUM 2GM PREMIX 50ML 50 ML IV PRN (16:15)
[2019-09-09] MEDS ORDERED: SODIUM CHLORIDE 0.9% 500ML 500 ML IV SCH (17:45)
[2019-09-09] MEDS ORDERED: INSULIN HUMULIN R 100 UNIT/ML 3ML ONE (17:53)
[2019-09-09] MEDS ORDERED: SODIUM CHLORIDE 0.9% 500ML 500 ML IV ONE (17:58)
[2019-09-09] MEDS: INSULIN HUMULIN R 100 UNIT/ML 3ML SQ SCH ×2 (18:23→21:38)
[2019-09-09 18:57] LABS: ABG BASE EXCESS -4.1 mmol/L (-2.0-3.0); ABG HCO3 19.4 mmol/L (21.0-28.0); ABG OXYGEN SATURATION 96.7 % (95.0-99.0); ABG PCO2 32 mmHg (35-48)
[2019-09-09] MEDS ORDERED: ENOXAPARIN SODIUM 1 MG/KG SQ SCH (21:00)
[2019-09-09] MEDS: ENOXAPARIN SODIUM 80 MG/0.8 ML SQ SCH (21:36)
[2019-09-09] MEDS: INSULIN GLARGINE 100 UNITS/ML 10 ML VIAL SQ SCH (21:37)
[2019-09-10] VITALS (27 sets, daily range): BP systolic 96–155; BP diastolic 46–85
[2019-09-10] MEDS: FUROSEMIDE 10 MG/ML 2ML VIAL IV SCH ×2 (04:50→15:11)
[2019-09-10 05:14] LABS: BASOPHILS % (AUTO) 0.1 % (0.0-5.0); LYMPHOCYTES % (AUTO) 12.1 % (21.0-51.0); MEAN CORPUSCULAR HEMOGLOBIN 28.3 pg (27.0-33.0); MEAN CORPUSCULAR HGB CONC 33.3 g/dL (32.0-36.0); MEAN CORPUSCULAR VOLUME 84.8 fL (79-99); MONOCYTES % (AUTO) 7.4 % (3.0-13.0); NEUTROPHILS % (AUTO) 79.5 % (40.0-77.0); PLATELET COUNT (AUTO) 294 K/uL (130-400); RED BLOOD CELL COUNT(AUTO) 3.89 MIL/uL (4.50-6.20); RED CELL DISTRIBUTION WIDTH 13.2 % (11.0-15.5); WHITE BLOOD COUNT (AUTO) 6.8 K/uL (4.8-10.8)
[2019-09-10 05:34] LABS: ALBUMIN 2.3 g/dL (3.5-5.0); BILIRUBIN,TOTAL 0.5 mg/dL (0.2-1.0); CREATININE 1.2 mg/dL (0.5-1.5); MAGNESIUM 2.6 mg/dL (1.80-2.40); POTASSIUM 4.2 mmol/L (3.5-5.1); TOTAL PROTEIN, SERUM 7.1 g/dL (6.0-8.3)
[2019-09-10] MEDS: INSULIN HUMULIN R 100 UNIT/ML 3ML SQ SCH ×4 (07:14→21:13)
--- NOTE | 2019-09-10 08:00 | NUR ---
UP OUT OF BED TO CHAIR FOR BREAKFAST, THEN TO BEDSIDE COMMODE. PT WITH LOW O2 SATURATION WITH NON REBREATHER MASK
[2019-09-10] MEDS: DULOXETINE HCL 30 MG CAP PO SCH (08:26)
[2019-09-10] MEDS: VITAMIN B COMPLEX 1 CAPSULE PO SCH (08:26)
[2019-09-10] MEDS: GABAPENTIN 300 MG CAPSULE PO SCH ×2 (08:26→21:10)
[2019-09-10] MEDS: PANTOPRAZOLE SODIUM 40 MG TABLET.DR PO SCH (08:26)
[2019-09-10] MEDS: ENOXAPARIN SODIUM 80 MG/0.8 ML SQ SCH ×2 (08:27→21:09)
[2019-09-10] MEDS: ATORVASTATIN CALCIUM 40 MG TABLET PO SCH (08:27)
[2019-09-10] MEDS: FAMOTIDINE 20MG TAB 20 MG TAB PO SCH (08:27)
[2019-09-10] MEDS: DILTIAZEM HCL 180 MG CAP.SR.24H PO SCH (08:28)
[2019-09-10] MEDS: LEVOFLOXACIN 500 MG TABLET PO SCH (08:29)
[2019-09-10] MEDS: **HM** FENOFIBRATE 160MG PO SCH (08:46)
--- NOTE | 2019-09-10 09:00 | NUR ---
PLACED ON PRONE POTITION. NASAL CANNULA 4L MADE COMFORTABLE IN BED. ITEMS AT REACH. TOLERATING AT 98% SPO2 ON NC 4L
--- NOTE | 2019-09-10 12:28 | NUR ---
SAT UP FOR LUNCH, AND O2 LEVEL WENT DOWN TO 80'S NO SHORTNESS OF BREATH.
--- NOTE | 2019-09-10 13:10 | NUR ---
PLACED BACK ON PRONE POSITION O2 SAT GOES UP TO 98%
[2019-09-10] MEDS: DEXAMETHASONE SOD PHOSPHATE 4 MG/ML 1ML VIAL IVP SCH (15:11)
--- NOTE | 2019-09-10 17:03 | NUR ---
DAUGHTER ALECIA CALLED FOR INFORMATION ABOUT PTS STATUS. PT VERBALIZES CONSENT FOR ALECIA TO HAVE INFO ON HIS STATUS
[2019-09-10] MEDS: INSULIN GLARGINE 100 UNITS/ML 10 ML VIAL SQ SCH (21:11)
[2019-09-11 03:37] VITALS: BP 130/51
[2019-09-11 03:47] LABS: ABG BASE EXCESS -2.7 mmol/L (-2.0-3.0); ABG HCO3 21.4 mmol/L (21.0-28.0); ABG PCO2 35 mmHg (35-48)
[2019-09-11 05:28] LABS: BASOPHILS % (AUTO) 0.1 % (0.0-5.0); HEMATOCRIT 34.1 % (42-54); LYMPHOCYTES % (AUTO) 9.1 % (21.0-51.0); MEAN CORPUSCULAR HEMOGLOBIN 28.7 pg (27.0-33.0); MEAN CORPUSCULAR HGB CONC 33.4 g/dL (32.0-36.0); MEAN CORPUSCULAR VOLUME 85.9 fL (79-99); MONOCYTES % (AUTO) 5.5 % (3.0-13.0); NEUTROPHILS % (AUTO) 84.6 % (40.0-77.0); PLATELET COUNT (AUTO) 304 K/uL (130-400); RED BLOOD CELL COUNT(AUTO) 3.97 MIL/uL (4.50-6.20); RED CELL DISTRIBUTION WIDTH 12.9 % (11.0-15.5); WHITE BLOOD COUNT (AUTO) 9.4 K/uL (4.8-10.8)
[2019-09-11 05:35] LABS: CREATININE 1.2 mg/dL (0.5-1.5); MAGNESIUM 2.6 mg/dL (1.80-2.40); POTASSIUM 4.2 mmol/L (3.5-5.1)
[2019-09-11] MEDS ORDERED: PROPOFOL 1000 MG/100 ML 0 ML IV ONE (06:09)
[2019-09-11] MEDS: FUROSEMIDE 10 MG/ML 2ML VIAL IV SCH ×2 (06:14→17:06)
[2019-09-11] MEDS: INSULIN HUMULIN R 100 UNIT/ML 3ML SQ SCH ×4 (06:17→21:04)
[2019-09-11 07:00] VITALS: BP 149/55
[2019-09-11] MEDS: **HM** FENOFIBRATE 160MG PO SCH (09:00)
[2019-09-11] MEDS: LEVOFLOXACIN 500 MG TABLET PO SCH (09:11)
[2019-09-11] MEDS: GABAPENTIN 300 MG CAPSULE PO SCH ×2 (09:11→20:24)
[2019-09-11] MEDS: FAMOTIDINE 20MG TAB 20 MG TAB PO SCH (09:11)
[2019-09-11] MEDS: PANTOPRAZOLE SODIUM 40 MG TABLET.DR PO SCH (09:11)
[2019-09-11] MEDS: ENOXAPARIN SODIUM 80 MG/0.8 ML SQ SCH ×2 (09:11→20:25)
[2019-09-11] MEDS: VITAMIN B COMPLEX 1 CAPSULE PO SCH (09:11)
[2019-09-11] MEDS: ATORVASTATIN CALCIUM 40 MG TABLET PO SCH (09:12)
[2019-09-11] MEDS: DULOXETINE HCL 30 MG CAP PO SCH (09:12)
[2019-09-11] MEDS: DILTIAZEM HCL 180 MG CAP.SR.24H PO SCH (09:12)
[2019-09-11 11:00] VITALS: BP 109/71
[2019-09-11] MEDS: DEXAMETHASONE SOD PHOSPHATE 4 MG/ML 1ML VIAL IVP SCH (14:01)
[2019-09-11 16:00] VITALS: BP 136/64
[2019-09-11 20:00] VITALS: BP 133/76
[2019-09-11] MEDS: INSULIN GLARGINE 100 UNITS/ML 10 ML VIAL SQ SCH (21:05)
[2019-09-12] VITALS (14 sets, daily range): BP systolic 86–137; BP diastolic 44–80
[2019-09-12] MEDS: FUROSEMIDE 10 MG/ML 2ML VIAL IV SCH ×2 (04:05→16:22)
[2019-09-12] MEDS: INSULIN HUMULIN R 100 UNIT/ML 3ML SQ SCH ×5 (06:34→20:47)
[2019-09-12] MEDS: ATORVASTATIN CALCIUM 40 MG TABLET PO SCH (08:55)
[2019-09-12] MEDS: GABAPENTIN 300 MG CAPSULE PO SCH ×2 (08:55→20:49)
[2019-09-12] MEDS: PANTOPRAZOLE SODIUM 40 MG TABLET.DR PO SCH (08:55)
[2019-09-12] MEDS: VITAMIN B COMPLEX 1 CAPSULE PO SCH (08:55)
[2019-09-12] MEDS: DULOXETINE HCL 30 MG CAP PO SCH (08:56)
[2019-09-12] MEDS: DILTIAZEM HCL 180 MG CAP.SR.24H PO SCH (08:56)
[2019-09-12] MEDS: ENOXAPARIN SODIUM 80 MG/0.8 ML SQ SCH ×2 (08:58→20:50)
[2019-09-12] MEDS: **HM** FENOFIBRATE 160MG PO SCH (09:00)
[2019-09-12] MEDS: LEVOFLOXACIN 500 MG TABLET PO SCH (09:02)
--- NOTE | 2019-09-12 10:25 | NUR ---
RDSCREEN - LOS X 7 Pt with positive COVID-19. Hx of DM, HTN. Pt currently with Dialysis diet in place. Decreased PO intake. GBW and Hypoxia. Increased protein needs related to compromised respiratory function as evidenced by hypoxia. Elevated BG levels. Recommend modify diet to 60gm CCD, NCS Recommend Nepro BID RD to continue to monitor. Please notify as additional nutrition concerns arise. Thank you.
--- NOTE | 2019-09-12 11:00 | NUR ---
UP TO SHOWER WITHOUT INCIDENT. ON NASAL CANNULA 5LITERS. AND BACK TO PRONE POSITION PT WITH 02 SAT OF 95% ON PRONE. O2 SAT 88% SITTING
--- NOTE | 2019-09-12 14:40 | NUR ---
LATERAL TRANSFER TO RM 231 INFORMED. ALSO ASKED TO CALL BACK WITH NAME OF HOME INSULIN MEDICATION
[2019-09-12 14:43] LABS: ABG BASE EXCESS -1.8 mmol/L (-2.0-3.0); ABG HCO3 21.7 mmol/L (21.0-28.0); ABG OXYGEN SATURATION 85.5 % (95.0-99.0); ABG PCO2 34 mmHg (35-48)
[2019-09-12] MEDS: DEXAMETHASONE SOD PHOSPHATE 4 MG/ML 1ML VIAL IVP SCH (14:47)
[2019-09-12] MEDS ORDERED: INSLAN SQ (20:04)
[2019-09-12] MEDS: INSULIN GLARGINE 100 UNITS/ML 10 ML VIAL SQ SCH (20:49)
[2019-09-12] MEDS ORDERED: INSULIN HUMULIN R 100 UNIT/ML 3ML IV SCH (22:30)
[2019-09-13 03:00] VITALS: BP 134/65
[2019-09-13 04:08] LABS: ABG BASE EXCESS -0.7 mmol/L (-2.0-3.0); ABG HCO3 22.8 mmol/L (21.0-28.0); ABG OXYGEN SATURATION 95.7 % (95.0-99.0); ABG PCO2 34 mmHg (35-48)
[2019-09-13] MEDS: INSULIN HUMULIN R 100 UNIT/ML 3ML SQ SCH ×4 (06:37→20:35)
--- NOTE | 2019-09-13 06:50 | NUR ---
END OF SHIFT PATIENT HAD A BLOOD SUGAR OF 447 FOR HS BLOOD CHECK, 20 UNITS OF LANTUS GIVEN AND 20 UNITS OF REGULAR GIVEN. PAGE AVELINO VARGAS WHO STATED TO CHECK BLOOD SUGAR IN AN HOUR AND CALL BACK FOR ORDERS IF BLOOD SUGARS INCREASE. CHECKED ONE HOUR AND BLOOD SUGAR WAS 460. RECIEVED ORDERS FOR 10 UNITS IV PUSH. CHECKED AN HOUR LATER AND BLOOD SUGAR CAME DOWN TO 245. AM BLOOD SUGAR WAS 217 WITH 8 UNITS GIVEN . P;ATIENT HAS BEEN ASYMPTOMATIC. PATIENT RESTING IN BED COMFORTABLY WITH NO QUESTIONS OR CONCERNS AT THIS TIME.
[2019-09-13 08:00] VITALS: BP 112/69
[2019-09-13] MEDS: VITAMIN B COMPLEX 1 CAPSULE PO SCH (08:21)
[2019-09-13] MEDS: DILTIAZEM HCL 180 MG CAP.SR.24H PO SCH (08:22)
[2019-09-13] MEDS: ATORVASTATIN CALCIUM 40 MG TABLET PO SCH (08:22)
[2019-09-13] MEDS: GABAPENTIN 300 MG CAPSULE PO SCH ×2 (08:22→20:37)
[2019-09-13] MEDS: DULOXETINE HCL 30 MG CAP PO SCH (08:22)
[2019-09-13] MEDS: PANTOPRAZOLE SODIUM 40 MG TABLET.DR PO SCH (08:22)
[2019-09-13] MEDS: LEVOFLOXACIN 500 MG TABLET PO SCH (08:22)
[2019-09-13] MEDS: ENOXAPARIN SODIUM 80 MG/0.8 ML SQ SCH (08:23)
[2019-09-13] MEDS: **HM** FENOFIBRATE 160MG PO SCH (08:23)
[2019-09-13] MEDS ORDERED: FUROSEMIDE 10 MG/ML 2ML VIAL IV SCH (09:00)
[2019-09-13 09:05] LABS: ALBUMIN 2.5 g/dL (3.5-5.0); BILIRUBIN,DIRECT 0.1 mg/dL (0.0-0.3); BILIRUBIN,TOTAL 0.4 mg/dL (0.2-1.0); CREATININE 1.1 mg/dL (0.5-1.5); POTASSIUM 3.8 mmol/L (3.5-5.1); TOTAL PROTEIN, SERUM 7.4 g/dL (6.0-8.3)
[2019-09-13 10:10] LABS: BASOPHILS % (AUTO) 0.1 % (0.0-5.0); EOSINOPHILS % (AUTO) 0.5 % (0.0-8.0); LYMPHOCYTES % (AUTO) 8.3 % (21.0-51.0); MEAN CORPUSCULAR HEMOGLOBIN 28.3 pg (27.0-33.0); MEAN CORPUSCULAR HGB CONC 33.6 g/dL (32.0-36.0); MEAN CORPUSCULAR VOLUME 84.1 fL (79-99); MONOCYTES % (AUTO) 3.5 % (3.0-13.0); NEUTROPHILS % (AUTO) 85.9 % (40.0-77.0); PLATELET COUNT (AUTO) 335 K/uL (130-400); RED BLOOD CELL COUNT(AUTO) 4.28 MIL/uL (4.50-6.20); RED CELL DISTRIBUTION WIDTH 13.2 % (11.0-15.5); WHITE BLOOD COUNT (AUTO) 14.6 K/uL (4.8-10.8)
[2019-09-13 12:00] VITALS: BP 94/53
[2019-09-13] MEDS: DEXAMETHASONE SOD PHOSPHATE 4 MG/ML 1ML VIAL IVP SCH (15:02)
[2019-09-13] MEDS: POLYETHYLENE GLYCOL 3350 17 GM POWD.PACK PO SCH (15:02)
[2019-09-13 15:30] VITALS: BP 92/53
[2019-09-13 19:00] VITALS: BP 122/76
[2019-09-13] MEDS: INSULIN GLARGINE 100 UNITS/ML 10 ML VIAL SQ SCH (20:36)
[2019-09-13 23:00] VITALS: BP 93/52
[2019-09-14 03:00] VITALS: BP 105/48
[2019-09-14 05:09] LABS: HEMATOCRIT 33.9 % (42-54); MEAN CORPUSCULAR HEMOGLOBIN 28.7 pg (27.0-33.0); MEAN CORPUSCULAR HGB CONC 34.2 g/dL (32.0-36.0); MEAN CORPUSCULAR VOLUME 83.9 fL (79-99); RED BLOOD CELL COUNT(AUTO) 4.04 MIL/uL (4.50-6.20); RED CELL DISTRIBUTION WIDTH 12.9 % (11.0-15.5); WHITE BLOOD COUNT (AUTO) 12.8 K/uL (4.8-10.8)
[2019-09-14 05:26] LABS: CREATININE 1.2 mg/dL (0.5-1.5)
[2019-09-14] MEDS: INSULIN HUMULIN R 100 UNIT/ML 3ML SQ SCH ×4 (06:47→20:47)
[2019-09-14 08:00] VITALS: BP 113/51
[2019-09-14] MEDS: **HM** FENOFIBRATE 160MG PO SCH (09:00)
[2019-09-14] MEDS: ATORVASTATIN CALCIUM 40 MG TABLET PO SCH (09:28)
[2019-09-14] MEDS: DULOXETINE HCL 30 MG CAP PO SCH (09:28)
[2019-09-14] MEDS: PANTOPRAZOLE SODIUM 40 MG TABLET.DR PO SCH (09:28)
[2019-09-14] MEDS: GABAPENTIN 300 MG CAPSULE PO SCH ×2 (09:28→21:21)
[2019-09-14] MEDS: POLYETHYLENE GLYCOL 3350 17 GM POWD.PACK PO SCH (09:28)
[2019-09-14] MEDS: VITAMIN B COMPLEX 1 CAPSULE PO SCH (09:28)
[2019-09-14] MEDS: FUROSEMIDE 10 MG/ML 2ML VIAL IV SCH (09:28)
[2019-09-14] MEDS: LEVOFLOXACIN 500 MG TABLET PO SCH (09:28)
[2019-09-14] MEDS: ENOXAPARIN SODIUM 40 MG/0.4 ML SYRINGE SQ SCH (09:29)
[2019-09-14] MEDS: DILTIAZEM HCL 180 MG CAP.SR.24H PO SCH (09:29)
[2019-09-14 12:00] VITALS: BP 109/51
[2019-09-14] MEDS: DEXAMETHASONE SOD PHOSPHATE 4 MG/ML 1ML VIAL IVP SCH (13:43)
[2019-09-14 15:30] VITALS: BP 103/49
[2019-09-14 19:42] VITALS: BP 121/54
[2019-09-14] MEDS: INSULIN GLARGINE 100 UNITS/ML 10 ML VIAL SQ SCH (20:48)
[2019-09-14 23:05] VITALS: BP 106/51
[2019-09-15 03:32] VITALS: BP 99/50
[2019-09-15] MEDS: INSULIN HUMULIN R 100 UNIT/ML 3ML SQ SCH ×4 (06:23→20:48)
[2019-09-15] MEDS: INSULIN GLARGINE 100 UNITS/ML 10 ML VIAL SQ SCH ×2 (06:25→20:50)
[2019-09-15 08:00] VITALS: BP 127/72
[2019-09-15] MEDS ORDERED: ERGOCALCIFEROL (VITAMIN D2) 50,000 UNIT CAPSULE PO SCH (08:15)
[2019-09-15] MEDS: PANTOPRAZOLE SODIUM 40 MG TABLET.DR PO SCH (08:31)
[2019-09-15] MEDS: DULOXETINE HCL 30 MG CAP PO SCH (08:31)
[2019-09-15] MEDS: GABAPENTIN 300 MG CAPSULE PO SCH ×2 (08:31→20:46)
[2019-09-15] MEDS: ATORVASTATIN CALCIUM 40 MG TABLET PO SCH (08:31)
[2019-09-15] MEDS: POLYETHYLENE GLYCOL 3350 17 GM POWD.PACK PO SCH (08:31)
[2019-09-15] MEDS: DILTIAZEM HCL 180 MG CAP.SR.24H PO SCH (08:31)
[2019-09-15] MEDS: VITAMIN B COMPLEX 1 CAPSULE PO SCH (08:31)
[2019-09-15] MEDS: ENOXAPARIN SODIUM 40 MG/0.4 ML SYRINGE SQ SCH (08:32)
[2019-09-15] MEDS: **HM** FENOFIBRATE 160MG PO SCH (08:32)
[2019-09-15] MEDS: FUROSEMIDE 10 MG/ML 2ML VIAL IV SCH (08:32)
[2019-09-15] MEDS: ASCORBIC ACID 500 MG TAB PO SCH ×2 (08:36→20:46)
[2019-09-15] MEDS: ZINC SULFATE 220 CAPSULE PO SCH (08:36)
[2019-09-15 11:30] VITALS: BP 99/51
[2019-09-15 15:30] VITALS: BP 111/58
[2019-09-15] MEDS: DEXAMETHASONE SOD PHOSPHATE 4 MG/ML 1ML VIAL IVP SCH (16:23)
[2019-09-15 19:54] VITALS: BP 112/59
[2019-09-15 23:04] VITALS: BP 108/48
[2019-09-16 03:45] VITALS: BP 132/74
[2019-09-16] MEDS: INSULIN GLARGINE 100 UNITS/ML 10 ML VIAL SQ SCH ×2 (06:39→20:19)
[2019-09-16] MEDS: INSULIN HUMULIN R 100 UNIT/ML 3ML SQ SCH ×4 (06:43→20:20)
[2019-09-16 08:00] VITALS: BP 139/77
[2019-09-16] MEDS: VITAMIN B COMPLEX 1 CAPSULE PO SCH (08:46)
[2019-09-16] MEDS: ATORVASTATIN CALCIUM 40 MG TABLET PO SCH (08:47)
[2019-09-16] MEDS: PANTOPRAZOLE SODIUM 40 MG TABLET.DR PO SCH (08:47)
[2019-09-16] MEDS: ZINC SULFATE 220 CAPSULE PO SCH (08:47)
[2019-09-16] MEDS: GABAPENTIN 300 MG CAPSULE PO SCH ×2 (08:47→20:18)
[2019-09-16] MEDS: DILTIAZEM HCL 180 MG CAP.SR.24H PO SCH (08:47)
[2019-09-16] MEDS: DULOXETINE HCL 30 MG CAP PO SCH (08:47)
[2019-09-16] MEDS: **HM** FENOFIBRATE 160MG PO SCH (08:48)
[2019-09-16] MEDS: POLYETHYLENE GLYCOL 3350 17 GM POWD.PACK PO SCH (08:48)
[2019-09-16] MEDS: FUROSEMIDE 10 MG/ML 2ML VIAL IV SCH (08:48)
[2019-09-16] MEDS: ENOXAPARIN SODIUM 40 MG/0.4 ML SYRINGE SQ SCH (08:48)
[2019-09-16] MEDS: ASCORBIC ACID 500 MG TAB PO SCH ×2 (08:48→20:18)
[2019-09-16 11:30] VITALS: BP 91/47
[2019-09-16 15:30] VITALS: BP 103/59
[2019-09-16] MEDS: DEXAMETHASONE SOD PHOSPHATE 4 MG/ML 1ML VIAL IVP SCH (15:47)
[2019-09-16 19:24] VITALS: BP 120/61
[2019-09-16 19:37] VITALS: BP 115/63
[2019-09-17 03:25] VITALS: BP 138/68
[2019-09-17 03:55] LABS: ABG BASE EXCESS -0.7 mmol/L (-2.0-3.0); ABG HCO3 22.8 mmol/L (21.0-28.0); ABG OXYGEN SATURATION 88.4 % (95.0-99.0); ABG PCO2 35 mmHg (35-48)
[2019-09-17 05:25] LABS: HEMATOCRIT 33.3 % (42-54); MEAN CORPUSCULAR HEMOGLOBIN 28.4 pg (27.0-33.0); MEAN CORPUSCULAR HGB CONC 33.9 g/dL (32.0-36.0); MEAN CORPUSCULAR VOLUME 83.7 fL (79-99); NUCLEATED RED BLOOD CELLS 0.1 % (0.0-0.19); RED BLOOD CELL COUNT(AUTO) 3.98 MIL/uL (4.50-6.20); RED CELL DISTRIBUTION WIDTH 13.4 % (11.0-15.5); WHITE BLOOD COUNT (AUTO) 19.6 K/uL (4.8-10.8)
[2019-09-17 05:39] LABS: CREATININE 1.1 mg/dL (0.5-1.5); POTASSIUM 4.4 mmol/L (3.5-5.1)
[2019-09-17] MEDS: INSULIN GLARGINE 100 UNITS/ML 10 ML VIAL SQ SCH ×2 (06:42→20:41)
[2019-09-17] MEDS: INSULIN HUMULIN R 100 UNIT/ML 3ML SQ SCH ×4 (06:43→20:44)
[2019-09-17 08:00] VITALS: BP 148/72
[2019-09-17] MEDS: DILTIAZEM HCL 180 MG CAP.SR.24H PO SCH (08:19)
[2019-09-17] MEDS: VITAMIN B COMPLEX 1 CAPSULE PO SCH (08:19)
[2019-09-17] MEDS: DULOXETINE HCL 30 MG CAP PO SCH (08:19)
[2019-09-17] MEDS: ATORVASTATIN CALCIUM 40 MG TABLET PO SCH (08:19)
[2019-09-17] MEDS: ZINC SULFATE 220 CAPSULE PO SCH (08:19)
[2019-09-17] MEDS: FUROSEMIDE 10 MG/ML 2ML VIAL IV SCH (08:19)
[2019-09-17] MEDS: **HM** FENOFIBRATE 160MG PO SCH (08:20)
[2019-09-17] MEDS: POLYETHYLENE GLYCOL 3350 17 GM POWD.PACK PO SCH (08:20)
[2019-09-17] MEDS: GABAPENTIN 300 MG CAPSULE PO SCH ×2 (08:20→20:36)
[2019-09-17] MEDS: PANTOPRAZOLE SODIUM 40 MG TABLET.DR PO SCH (08:20)
[2019-09-17] MEDS: ASCORBIC ACID 500 MG TAB PO SCH ×2 (08:20→20:35)
[2019-09-17] MEDS: ENOXAPARIN SODIUM 40 MG/0.4 ML SYRINGE SQ SCH (08:34)
[2019-09-17 12:00] VITALS: BP 83/57
[2019-09-17] MEDS: DEXAMETHASONE SOD PHOSPHATE 4 MG/ML 1ML VIAL IVP SCH (14:19)
[2019-09-17 16:00] VITALS: BP 99/58
[2019-09-17 19:40] VITALS: BP 108/69
[2019-09-17 23:09] VITALS: BP 103/69
[2019-09-18] VITALS (24 sets, daily range): BP systolic 61–135; BP diastolic 18–79
[2019-09-18] MEDS: INSULIN HUMULIN R 100 UNIT/ML 3ML SQ SCH ×4 (06:22→21:00)
[2019-09-18] MEDS: INSULIN GLARGINE 100 UNITS/ML 10 ML VIAL SQ SCH ×2 (06:24→21:00)
[2019-09-18] MEDS: **HM** FENOFIBRATE 160MG PO SCH (09:00)
[2019-09-18] MEDS: FUROSEMIDE 10 MG/ML 2ML VIAL IV SCH (09:03)
[2019-09-18] MEDS: POLYETHYLENE GLYCOL 3350 17 GM POWD.PACK PO SCH (09:03)
[2019-09-18] MEDS: DULOXETINE HCL 30 MG CAP PO SCH (09:03)
[2019-09-18] MEDS: VITAMIN B COMPLEX 1 CAPSULE PO SCH (09:03)
[2019-09-18] MEDS: PANTOPRAZOLE SODIUM 40 MG TABLET.DR PO SCH (09:03)
[2019-09-18] MEDS: DILTIAZEM HCL 180 MG CAP.SR.24H PO SCH (09:04)
[2019-09-18] MEDS: ZINC SULFATE 220 CAPSULE PO SCH (09:04)
[2019-09-18] MEDS: ASCORBIC ACID 500 MG TAB PO SCH ×2 (09:04→21:00)
[2019-09-18] MEDS: GABAPENTIN 300 MG CAPSULE PO SCH ×2 (09:04→21:00)
[2019-09-18] MEDS: ATORVASTATIN CALCIUM 40 MG TABLET PO SCH (09:04)
[2019-09-18] MEDS: ENOXAPARIN SODIUM 40 MG/0.4 ML SYRINGE SQ SCH (09:05)
[2019-09-18] MEDS: DEXAMETHASONE SOD PHOSPHATE 4 MG/ML 1ML VIAL IVP SCH (14:16)
--- NOTE | 2019-09-18 14:30 | NUR ---
PATIENT HAD BEEN WITNESSED GOING TO THE BATHROOM BY RT ASHBY @ AROUND 1415 AND HE SAID HE TOOK OF HIS MASK AND @ 1430 PELON LARSON WALKED IN AND FOUND PATIENT ON THE FLOOR. I IMMEDIATELY STARTED CPR AND A CODE WAS CALLED AND CODE TEAM ARRIVED ALMOST IMMEDIATELY. CHAIR WAS TURNED THE FRONT DOWN AND PATIENT WAS NOT BREATHING AND PULSELESS. Addendum: 09/18/19 at 1528 by TENA MCNAIR RN RN Amended: Links added.
--- NOTE | 2019-09-18 14:40 | NUR ---
CODE- Family notified notified of patient code with compressions and need for intubation. states wants everything done and to proceed with intubation. Code team updated. SUDEEP Robertson spoke to and provided update. CD
[2019-09-18] MEDS ORDERED: SODIUM BICARB 50MEQ 50ML VIAL ONE (14:46)
[2019-09-18] MEDS ORDERED: SODIUM CHLORIDE 0.9% 1000ML 1,000 ML IV ONE (14:58)
[2019-09-18] MEDS ORDERED: NOREPINEPHRINE 4MG/NS 250ML 250 ML IV ONE (15:00)
[2019-09-18 15:08] LABS: BASOPHILS % (AUTO) 0.3 % (0.0-5.0); HEMATOCRIT 37.8 % (42-54); LYMPHOCYTES % (AUTO) 19.8 % (21.0-51.0); MEAN CORPUSCULAR HEMOGLOBIN 28.8 pg (27.0-33.0); MEAN CORPUSCULAR HGB CONC 30.7 g/dL (32.0-36.0); MEAN CORPUSCULAR VOLUME 93.8 fL (79-99); NEUTROPHILS % (AUTO) 74.1 % (40.0-77.0); NUCLEATED RED BLOOD CELLS 0.7 % (0.0-0.19); PLATELET COUNT (AUTO) 228 K/uL (130-400); RED BLOOD CELL COUNT(AUTO) 4.03 MIL/uL (4.50-6.20); RED CELL DISTRIBUTION WIDTH 13.5 % (11.0-15.5)
[2019-09-18 15:25] LABS: INR 1.12 (0.85-1.15); PARTIAL THROMBOPLASTIN TIME 43.6 SEC (26.3-35.5)
[2019-09-18] MEDS ORDERED: FENTANYL 1000MCG+NS 100ML 100 ML IV SCH (15:45)
--- NOTE | 2019-09-18 15:50 | NUR ---
TRANSFERRED TO ICU AT THIS TIME. PT WITH PULSE, BUT UNRESPONSIVE, ON MAX IV PRESSORS. PUPILS NOT RESPONSIVE
[2019-09-18 16:08] LABS: ABG BASE EXCESS -24.6 mmol/L (-2.0-3.0); ABG HCO3 8.3 mmol/L (21.0-28.0); ABG OXYGEN SATURATION 92.2 % (95.0-99.0); ABG PCO2 46 mmHg (35-48)
[2019-09-18] MEDS ORDERED: SODIUM BICARB 8.4% IV SCH (16:30)
[2019-09-18] MEDS ORDERED: SODIUM BICARB 50MEQ 50ML VIAL IV SCH (16:30)
[2019-09-18] MEDS ORDERED: SYRING IV SCH (16:30)
[2019-09-18] MEDS ORDERED: SODIUM CHLORIDE 0.9% IV SCH (16:30)
[2019-09-18 16:49] LABS: ALBUMIN 1.6 g/dL (3.5-5.0); BILIRUBIN,TOTAL 0.8 mg/dL (0.2-1.0); CREATININE 1.9 mg/dL (0.5-1.5); MAGNESIUM 3.6 mg/dL (1.80-2.40); POTASSIUM 5.5 mmol/L (3.5-5.1); TOTAL PROTEIN, SERUM 6.6 g/dL (6.0-8.3)
[2019-09-18] MEDS: NOREPINEPHRINE 4MG/NS 250ML 250 ML IV PRN ×3 (17:00→20:19)
--- NOTE | 2019-09-18 17:45 | NUR ---
TAKEN TO CT SCAN AT THIS TIME. PT VERY UNSTABLE, INCREASED LEVO, BICARB DRIP GOING AFTER IV PUSH BICARB GIVEN. PT STILL UNRESPONSIVE. SETTING IS 100% ON VENTILLATOR.
[2019-09-18 18:15] LABS: PHOSPHORUS 14.6 mg/dL (2.5-4.9)
--- NOTE | 2019-09-18 18:45 | NUR ---
SBAR REPORT TO CHANGE MANAGEMENT LEAD
--- NOTE | 2019-09-18 18:59 | NUR ---
SPOKE TO KEESHA, FOR UPDATE. EXPLAINED THAT PT IS ON A VENTILLATOR AND IS NOT RESPONDING. WANTS ME TO EXPLAIN TO DAUGHTER
[2019-09-18 19:26] LABS: ABG BASE EXCESS -14.4 mmol/L (-2.0-3.0); ABG HCO3 15.6 mmol/L (21.0-28.0); ABG OXYGEN SATURATION 79.5 % (95.0-99.0); ABG PCO2 53 mmHg (35-48)
[2019-09-18] MEDS ORDERED: DOPAMINE 800MG/D5 250ML 250 ML IV ONE (19:30)
--- NOTE | 2019-09-18 19:30 | NUR ---
DAUGHTER GIVEN UPDATE ON PTS DIRE CONDITION. PLACED PORTABLE PHONE NEXT TO PTS EAR SO THAT DAUGHTER ALECIA MAY SPEAK TO PT AND SAY HER LAST WORDS TO HER FATHER. PT IS VERY UNSTABLE AT THIS TIME AND ON MAX PRESSORS
[2019-09-18] MEDS ORDERED: DOPAMINE HCL 400 MG/D5%-WATER 250 ML IV PRN ×2 (19:45)
--- NOTE | 2019-09-18 23:20 | NUR ---
DNR DAUGHTER PAULINO CRUM CALLED TO "SAY [facility]BYE BEFORE HE IS DISCONNECTED" EXPLAINED TO DAUGHTER THAT PATIENT REMAINS FULL CODE AND SPOUSE WAS TALKED TO EARLIER REGARDING CODE STATUS AND PATIENT REMAINS FULL CODE. UPDATED ON PATIENT CONDITION. DAUGHTER STATED IS GOING TO TALK TO SPOUSE. 2312 RECEIVED CALL FROM SPOUSE RIAZ CRUM. UPDATED ON PATIENT CONDITION. EXPLAINED PATIENT REQUIRING A LOT OF VASOPRESSOR SUPPORT AND CONDITION CONTINUES TO DETERIORATE. PROVIDED MORE INFORMATION ON DNR. SPOUSE STATED " I DON'T WANT HIM TO SUFFER ANYMORE". EXPLAINED THAT WILL CONTINUE CURRENT TREATMENT AND THAT IF PATIENT WERE TO CO INTO CARDIAC ARREST THAT NO ATTEMPT WOULD BE MADE TO RESUSCITATE. DONALD WOOTEN SPOKE TO SPOUSE WELL TO VERIFY REQUEST FOR DNR STATUS. NURSING MANAGER AND PRIMARY NURSE NOTIFIED. PRIMARY NURSE DONALD MCCULLOUGH TO NOTIFY BENCHMARK CC.
--- NOTE | 2019-09-19 02:40 | NUR ---
0215 -PATIENT PRONOUNCED BY DR. STACY AT 0215. JUSTIN CALLED AND Jogre MORELAND NP NOTIFIED OF PATIENT . 0220- SPOKE WITH SPOUSE RIAZ CRUM AND NOTIFIED OF . SPOUSE DECLINED AUTOPSY. FAMILY HAS CHOSEN [facility] IN [place], [place]. SPOUSE HAD DAUGHTER JEROME CRUM CALL AND NOTIFIED OF WELL. 023- TOSA CALLED AND PATIENT RULED OUT DUE TO AGE. 0250- POST MORTEM CARE COMPLETED AND PATIENT TAKEN TO [facility] [place] BY MOHSEN [place] AND DONALD CASTILLO.
== END 2019-09-19 02:15 | disposition expired | DRG 208 ==
LOC: EDH 13:48 → EDHIP 20:04 → OBSVTOIN 20:04 → 2CH 09-09 19:40 → 2AH 09-12 14:53 → 2CV 09-18 16:06 → 2CH 09-18 22:31
PROVIDERS: ADMIT Internal Medicine Critical Care Medicine; ATTEND Internal Medicine Critical Care Medicine
PROC: 0BH17EZ Insertion of Endotracheal Airway into Trachea, Via Natural or Artificial Opening (ICD-10-PCS; principal; 2019-09-18)
PROC: 5A1935Z Respiratory Ventilation, Less than 24 Consecutive Hours (ICD-10-PCS; 2019-09-18)
DX: U07.1 COVID-19 (principal); J12.89 Other viral pneumonia; J96.01 Acute respiratory failure with hypoxia; M62.82 Rhabdomyolysis; E87.1 Hypo-osmolality and hyponatremia; N39.0 Urinary tract infection, site not specified; I46.9 Cardiac arrest, cause unspecified; Z66 Do not resuscitate; I95.9 Hypotension, unspecified; I10 Essential (primary) hypertension; E78.5 Hyperlipidemia, unspecified; B95.1 Streptococcus, group B, as the cause of diseases classified elsewhere; E11.9 Type 2 diabetes mellitus without complications; W18.30XA Fall on same level, unspecified, initial encounter; I25.10 Atherosclerotic heart disease of native coronary artery without angina pectoris; Z79.84 Long term (current) use of oral hypoglycemic drugs; Y92.009 Unspecified place in unspecified non-institutional (private) residence as the place of occurrence of the external cause; Z79.4 Long term (current) use of insulin; Z79.899 Other long term (current) drug therapy; Y93.89 Activity, other specified; Y99.8 Other external cause status
CPT/HCPCS: 31500; 36415; 36600; 70450; 71045; 71275; 80048; 80053; 80076; 81001; 82435; 82550; 82728; 82803; 82947; 82948; 83605; 83615; 83735; 83874; 83880; 84100; 84132; 84145; 84260; 84295; 84484; 85018; 85025; 85027; 85378; 85610; 85730; 86140; 86850; 86900; 86901; 87040; 87088; 87804; 92950; 93005; 94002; 94003; 94760; G0378; J0171; J0360; J0696; J1100; J1265; J1650; J1815; J1940; J2704; J3490; J7030; J7040; Q9967; U0003